=== PATIENT | male | born 1960 | race Caucasian/White ===

== ENCOUNTER 2017-01-06 23:51 | Emergency (ER) | payer OTHER ==
[~2017-01-06] VITALS: Ht 182.9 cm; Wt 113.4 kg
[2017-01-07] MEDS ORDERED: HUMALOG100 UNIT/2 SUB-Q (00:21)
[2017-01-07] MEDS ORDERED: LISINOPRIL10 MG PO (00:22)
[2017-01-07] MEDS ORDERED: LANTUS SOL100 UNIT/1 SUB-Q (00:22)
[2017-01-07] MEDS ORDERED: METOPROLOL SUCC25 MG PO (00:22)
[2017-01-07] MEDS ORDERED: LIPITOR20 MG PO (00:23)
[2017-01-07] MEDS ORDERED: IRON325 M1 PO (00:23)
[2017-01-07] MEDS ORDERED: VITAMIN D35000 UNIT PO (00:23)
[2017-01-07] MEDS ORDERED: NORCO 5-325 TA1 EACH PO (03:05)
== END 2017-01-07 03:23 | disposition home or self-care (01) ==
LOC: ED 23:51
DX: S09.90XA Unspecified injury of head, initial encounter (principal); S70.02XA Contusion of left hip, initial encounter; I12.9 Hypertensive chronic kidney disease with stage 1 through stage 4 chronic kidney disease, or unspecified chronic kidney disease; E11.22 Type 2 diabetes mellitus with diabetic chronic kidney disease; N18.9 Chronic kidney disease, unspecified; D63.1 Anemia in chronic kidney disease; Z90.89 Acquired absence of other organs; Z90.49 Acquired absence of other specified parts of digestive tract; Z88.6 Allergy status to analgesic agent; Z88.5 Allergy status to narcotic agent; Z88.0 Allergy status to penicillin; Z88.8 Allergy status to other drugs, medicaments and biological substances; Z79.4 Long term (current) use of insulin; Z79.899 Other long term (current) drug therapy; W01.0XXA Fall on same level from slipping, tripping and stumbling without subsequent striking against object, initial encounter
CPT/HCPCS: 70450; 72125; 73502; 99284